=== PATIENT | female | born 1960 | race Two or more races ===

== ENCOUNTER → 2018-01-30 | Outpatient (CLI) | payer OTHER ==
[~2018-01-30] MED LIST: LIDOCAINE 1%/EPI 1:100,000 20 ML VIAL. INJ; LIDOCAINE 1%/EPI 1:100,000 30 ML VIAL. IJ
== END | disposition home or self-care (01) ==
LOC: US 08:03
DX: D24.2 Benign neoplasm of left breast (principal)
CPT/HCPCS: 19081; 19083; 76942; 77065; 88305; C1713